=== PATIENT | male | born 1950 | race Hispanic/Latino ===

== ENCOUNTER 2019-10-10 00:41 | Emergency (ER) | payer OTHER ==
[2019-10-10 01:28] VITALS: BP 106/71
--- NOTE | 2019-10-10 01:40 | Emergency Department Report ---
ED Fall HPI - General Chief Complaint: Dizziness Stated Complaint: FALL Time Seen by Provider: 10/10/19 01:34 Source: patient, EMS Mode of arrival: Stretcher Limitations: Altered Mental Status (Currently under treatment for psychosis) - History of Present Illness Initial Comments: Mr. Cueto is a 68 yo male who presents from [facility] after a fall in the shower. Product Marketing Intern at the bedside was concerned after she found him sitting in on the shower floor and would not get out. He states that his tailbone hurts. He has slight confusion which appears to be baseline according to excel analyst at the bedside. No other injury. MD Complaint: fall -: Sudden, This evening Fall From: standing When Fall Occurred: 1 hour [employer] Fall Witnessed: yes, by living facility s Place Fall Occurred: other ([facility]) Loss of Consciousness: none Prolonged Down Time?: no Symptoms Prior to Fall: none Location: buttocks Severity: mild Context: tripped/slipped Associated Symptoms: denies - Related Data Allergies Allergy/AdvReac Type Severity Reaction Status Date / Time No Known Allergies Allergy Unverified 10/10/19 00:50 ED Review of Systems ROS: Stated complaint: FALL Other details as noted in HPI Respiratory: denies: cough Cardiovascular: denies: chest pain Gastrointestinal: denies: nausea, vomiting Musculoskeletal: denies: back pain Skin: denies: rash Neurological: denies: headache ED Past Medical Hx - Past Medical History Previous Medical History?: No - Surgical History Past Surgical History?: No - Social History Smoking Status: Never Smoker Substance Use Type: None ED Physical Exam - General Limitations: Altered Mental Status (Acute psychosis) General appearance: alert, in no apparent distress - Head Head exam: Present: atraumatic, normocephalic - Eye Eye exam: Present: normal appearance - ENT ENT exam: Present: mucous membranes moist - Neck Neck exam: Present: normal inspection, full ROM - Respiratory Respiratory exam: Present: normal lung sounds bilaterally. Absent: respiratory distress, wheezes, rales, rhonchi - Cardiovascular Cardiovascular Exam: Present: regular rate, normal rhythm, normal heart sounds. Absent: systolic murmur, diastolic murmur, rubs, gallop - GI/Abdominal GI/Abdominal exam: Present: soft, normal bowel sounds. Absent: distended, tenderness, guarding, rebound - Extremities Exam Extremities exam: Present: normal inspection - Back Exam Back exam: Present: normal inspection, full ROM. Absent: tenderness, CVA tenderness (R), CVA tenderness (L), muscle spasm, paraspinal tenderness, vertebral tenderness, rash noted - Neurological Exam Neurological exam: Present: alert - Psychiatric Psychiatric exam: Present: normal mood, flat affect - Skin Skin exam: Present: warm, dry, intact, normal color. Absent: rash ED Course Vital Signs 10/10/19 01:26 Temperature 97.6 F Pulse Rate 61 Respiratory 16 Rate Blood Pressure 106/71 [Right] O2 Sat by Pulse 97 Oximetry ED Medical Decision Making - Medical Decision Making Mr. Cueto is a 68 yo male s/p fall in shower. NO indication of bony or head injury. Dc'd back to [facility]. Critical care attestation.: If time is entered above; I have spent that time in minutes in the direct care of this critically ill patient, excluding procedure time. ED Disposition Clinical Impression: Fall Disposition: DC/TX-70 ANOTHER TYPE HLTHCARE Is pt being admited?: No Does the pt Need Aspirin: No Condition: Stable Instructions: Fall Prevention for Older Adults (ED)
== END 2019-10-10 02:52 | disposition other institution (70) ==
LOC: ED 00:41
DX: R41.0 Disorientation, unspecified (principal); W18.2XXA Fall in (into) shower or empty bathtub, initial encounter; Y93.89 Activity, other specified; Y92.89 Other specified places as the place of occurrence of the external cause; Y99.8 Other external cause status